=== PATIENT | male | born 1940 | race Caucasian/White ===

== ENCOUNTER → 2017-05-30 | Outpatient (CLI) | payer MEDICARE ==
[~2017-05-30] VITALS: Ht 170.2 cm; Wt 75.0 kg
[~2017-05-30] MED LIST: ACET500C26 PO; ACETYLCYSTEINE 600 MG CAPSULE PO ONE; AMIO100T4 PO; ATOR40TA78 PO; CARV6.252 PO; CHOL500050 PO; EZET10TA18 PO; FENO67CA PO; FURO20TA3 PO; LEVO100T5 PO; LISI5TAB7 PO; OMEP-110 PO; SODIUM BICARB 8.4%,50ML SYR. 150 MEQ in DEXTROSE 5% 1,000 ML IV SCH; SPIR25TA3 PO; WARF3TAB7 PO
[2017-05-30 10:39] LABS: HEMATOCRIT 43.1 % (39.2-51.8); HEMOGLOBIN 13.9 g/dL (13.7-18.0); WHITE BLOOD COUNT 5.7 x10^3/uL (3.4-10)
[2017-05-30 10:46] VITALS: BP 88/69
[2017-05-30 10:50] LABS: BLOOD UREA NITROGEN 32 mg/dL (7-18)
== END | disposition home or self-care (01) ==
LOC: STAR 08:07 → CACL 05-31 08:07 → EDSTATUS 05-31 10:30
PROVIDERS: ATTEND Internal Medicine Cardiovascular Disease
DX: Z01.818 Encounter for other preprocedural examination (principal); I48.2 Chronic atrial fibrillation; I35.9 Nonrheumatic aortic valve disorder, unspecified; I12.9 Hypertensive chronic kidney disease with stage 1 through stage 4 chronic kidney disease, or unspecified chronic kidney disease; N18.3 Chronic kidney disease, stage 3 (moderate); E78.01 Familial hypercholesterolemia; I25.5 Ischemic cardiomyopathy; E78.5 Hyperlipidemia, unspecified; Z95.810 Presence of automatic (implantable) cardiac defibrillator
CPT/HCPCS: 36415; 80048; 85025

== ENCOUNTER 2017-06-04 07:59 | Day surgery (SDC) | payer MEDICARE ==
[~2017-06-04] VITALS: Ht 170.2 cm; Wt 75.0 kg
[~2017-06-04 07:59] MED LIST changes: -ACETYLCYSTEINE 600 MG CAPSULE PO ONE; -SODIUM BICARB 8.4%,50ML SYR. 150 MEQ in DEXTROSE 5% 1,000 ML IV SCH
[2017-06-04] MEDS ORDERED: SODIUM BICARB 8.4%,50ML SYR. 150 MEQ in DEXTROSE 5% 1,000 ML IV ONE (08:10)
[2017-06-04] MEDS ORDERED: ACETYLCYSTEINE 600 MG CAPSULE PO STA (08:28)
[2017-06-04] MEDS ORDERED: PLEASE ENTER HEIGHT AND WEIGHT MC SCH (08:30)
[2017-06-04 08:31] VITALS: BP 95/72
[2017-06-04] MEDS ORDERED: ACETYLCYSTEINE 600 MG CAPSULE PO ONE (09:00)
[2017-06-04] MEDS ORDERED: HEPARIN 1,000 UNITS/ML, 10ML ONE (13:23)
[2017-06-04] MEDS ORDERED: MIDAZOLAM 1 MG/ML, 5ML ONE (13:23)
[2017-06-04] MEDS ORDERED: LIDOCAINE 2%, 20ML ONE (13:23)
[2017-06-04] MEDS ORDERED: FENTANYL PF 100 MCG/2ML ONE (13:23)
[2017-06-04] MEDS ORDERED: WARFARIN 3 MG TABLET PO-COUM PRN (15:30)
[2017-06-04] MEDS ORDERED: POTASSIUM CHLORIDE 20 MEQ TAB.ER.PRT PO ONE (15:30)
[2017-06-04] MEDS ORDERED: FURO20TA3 PO (16:22)
[2017-06-04] MEDS ORDERED: FUROSEMIDE 40 MG/4 ML ONE (17:13)
[2017-06-04] MEDS ORDERED: FUROSEMIDE 40 MG/4 ML IV ONE (17:30)
[2017-06-04] MEDS ORDERED: ATORVASTATIN 40 MG TABLET PO SCH (21:00)
[2017-06-04] MEDS ORDERED: CARVEDILOL 6.25 MG TABLET PO SCH (21:00)
[2017-06-05] MEDS ORDERED: OMEPRAZOLE 20 MG CAPSULE.DR PO SCH (09:00)
[2017-06-05] MEDS ORDERED: LEVOTHYROXINE 100 MCG TABLET PO SCH (09:00)
[2017-06-05] MEDS ORDERED: FUROSEMIDE 40 MG TABLET PO SCH (09:00)
[2017-06-05] MEDS ORDERED: SPIRONOLACTONE 25 MG TABLET PO SCH (09:00)
== END 2017-06-04 19:02 | disposition home or self-care (01) ==
LOC: CACL 07:59 → 5SO 17:54 → CACL 19:02
PROVIDERS: ATTEND Internal Medicine Cardiovascular Disease
DX: I25.82 Chronic total occlusion of coronary artery (principal); I25.10 Atherosclerotic heart disease of native coronary artery without angina pectoris; I35.0 Nonrheumatic aortic (valve) stenosis; I48.2 Chronic atrial fibrillation; I35.9 Nonrheumatic aortic valve disorder, unspecified; I12.9 Hypertensive chronic kidney disease with stage 1 through stage 4 chronic kidney disease, or unspecified chronic kidney disease; N18.9 Chronic kidney disease, unspecified; E78.01 Familial hypercholesterolemia; I25.5 Ischemic cardiomyopathy
CPT/HCPCS: 36415; 85610; 93461; 99156; 99157; C1760; C1769; C1894; J1940; J2250; J3010; J3490; J7070; Q9967; J1644

== ENCOUNTER 2017-07-30 15:53 | Emergency (ER) | payer MEDICARE ==
[~2017-07-30] VITALS: Ht 170.2 cm; Wt 75.5 kg
[2017-07-30 17:37] LABS: BASOPHILS # (AUTO) 0.01 x10^3/uL (0-0.1); BASOPHILS % (AUTO) 0 % (0-1); EOSINOPHILS # (AUTO) 0.08 x10^3/uL (0-0.4); EOSINOPHILS % (AUTO) 2 % (1-7); LYMPHOCYTES # (AUTO) 0.58 x10^3/uL (1-3.4); LYMPHOCYTES % (AUTO) 15 % (22-44); MD NO; MEAN CORPUSCULAR HEMOGLOBIN 27.5 pg (27.5-34.5); MEAN CORPUSCULAR HGB CONC 32.3 g/dL (33.2-36.2); MEAN CORPUSCULAR VOLUME 84.9 fL (81-97); MEAN PLATELET VOLUME 9.4 fL (7.4-10.4); MONOCYTES # (AUTO) 0.54 x10^3/uL (0.2-0.8); MONOCYTES % (AUTO) 14 % (2-9); NEUTROPHILS # (AUTO) 2.68 x10^3/uL (1.8-6.8); NEUTROPHILS % (AUTO) 69 % (42-75); PLATELET COUNT 125 x10^3/uL (130-400); RED BLOOD COUNT 4.72 x10^6/uL (4.38-5.82); RED CELL DISTRIBUTION WIDTH 19.7 % (9.4-14.8)
[2017-07-30 17:49] LABS: ALANINE AMINOTRANSFERASE 51 U/L (12-78); ALBUMIN 3.5 g/dL (3.4-5.0); ANION GAP 8 mmol/L (5-15); CALCIUM 8.5 mg/dL (8.5-10.1); CHLORIDE 103 mmol/L (98-107); CREATININE 2.43 mg/dL (0.7-1.3)
[2017-07-30 17:54] LABS: ALKALINE PHOSPHATASE 66 U/L (45-117); BILIRUBIN,TOTAL 1.4 mg/dL (0.2-1.0); T4 (THYROXINE) 16.5 mcg/dL (4.5-12.1)
[2017-07-30 17:55] LABS: TROPONIN I 0.128 ng/mL (0.000-0.045)
[2017-07-30] MEDS ORDERED: EPLE25TA4 PO (18:12)
[2017-07-30] MEDS ORDERED: WARF1TAB7 PO (18:12)
[2017-07-30] MEDS ORDERED: AMOX1TAB12 PO (18:12)
[2017-07-30] MEDS ORDERED: LISI5TAB7 PO (18:12)
[2017-07-30] MEDS ORDERED: FEXO180T15 PO (18:12)
[2017-07-30 18:16] LABS: INTERNATIONAL NORMALIZED RATIO 3.95 (0.93-1.1)
[2017-07-30 19:19] VITALS: BP 86/60
== END 2017-07-30 19:20 | disposition home or self-care (01) ==
LOC: ED 17:55
DX: I95.2 Hypotension due to drugs (principal); I50.9 Heart failure, unspecified
CPT/HCPCS: 36415; 80053; 83880; 84436; 84443; 84484; 85025; 85610; 87040; 93005; 99285

== ENCOUNTER → 2017-08-08 | Outpatient (CLI) | payer MEDICARE ==
[~2017-08-08] MED LIST changes: +AMOX1TAB12 PO; +EPLE25TA4 PO; +FEXO180T15 PO; +WARF1TAB7 PO
== END | disposition home or self-care (01) ==
LOC: CVU 11:33
PROVIDERS: ATTEND Internal Medicine Cardiovascular Disease
DX: I65.23 Occlusion and stenosis of bilateral carotid arteries (principal); I35.0 Nonrheumatic aortic (valve) stenosis; J90 Pleural effusion, not elsewhere classified; I70.0 Atherosclerosis of aorta; I25.10 Atherosclerotic heart disease of native coronary artery without angina pectoris; E78.5 Hyperlipidemia, unspecified; I10 Essential (primary) hypertension; Z95.1 Presence of aortocoronary bypass graft
CPT/HCPCS: 71250; 74176; 93880; 94010; 94726; 94729